=== PATIENT | male | born 1980 | race Asian ===

== ENCOUNTER 2019-02-05 10:29 | Emergency (ER) | payer OTHER ==
[2019-02-05 11:10] LABS: ABS Basophils 0 10^3/ul (0-0.2); ABS Eosinophils 0 10^3/ul (0-0.6); ABS Lymphocytes 1.5 10^3/ul (1.0-4.8); ABS Monocytes 0.2 10^3/ul (0-0.8); ABS Nucleated RBC 0 10^3/ul; Eosinophil % 0.9 %; Hematocrit 43 % (36-46); Hemoglobin 14.7 g/dL (14.0-18.0); Lymphocyte % 25.3 %; Mean Corpuscular HGB Conc 34 g/dL (31-36); Mean Corpuscular Hemoglobin 28 pg (27-31); Mean Corpuscular Volume 82 fL (80-94); Mean Platelet Volume 9.7 fL (7.4-10.4); Nucleated Red Blood Cells % 0.1; Platelet Count 172 10^3/uL (150-450); Red Blood Count 5.23 10^6 /uL (4.18-5.48); Red Cell Distribution Width 14 % (10.5-15); White Blood Count 5.7 10^3/uL (3.5-10.8)
[2019-02-05] MEDS ORDERED: Al Hydrox/Mg Hydrox/Simet LIQ* 30 ML UDC PO ONE (11:14)
[2019-02-05] MEDS ORDERED: Lidocaine 2% VISCOUS* 15 ML UDC PO ONE (11:14)
--- NOTE | 2019-02-05 11:25 | ED ---
GI/ HPI - HPI Summary HPI Summary: 38 year old male presents to the emergency department for evaluation of epigastric pain. Pt states the pain started last night, 2 hours after dinner, and felt like a dull ache that is moderate in severity. Pt also reports associated diaphoresis, nausea, and fatigue during that time. He states that his symptoms resolved after he ate something small and drank water. Pt states he had [place] and was diagnosed with gastritis. He was treated on and off with omperazole and pantoprazole in the past. Pt states this has happened to him in the past during periods of stress and was treated by his doctor back home. He states he just moved to the [place] last month and is under increased stress. He started taking omeprazole twice a day since 01/17/19. Pt smokes 1-2 cigarettes per day. He does not drink alcohol. He states his mother was diagnosed with an abnormal heart rhythm when she was older but it did not kill her. - History of Current Complaint Chief Complaint: EDAbdPain Time Seen by Provider: 02/05/19 10:37 Stated Complaint: ABD PAIN PER PT Hx Obtained From: Patient Pain Intensity: 0 Location of Pain: Epigastric Pain Characteristics: Dull, Aching Associated Signs and Symptoms: Positive: Nausea, Diaphoresis. Negative: Back Pain, Pallor, Dizziness, Syncope, Vomiting, Blood-Streaked Stool, Black Tarry Stool, Bright Red Blood w/Stool, Blood w/Stool, Diarrhea, Fever, Change in Appetite, Cough, Chest Pain, Pale - Risk Factors GI Bleed Risk Factor(s): Negative - Allergy/Home Medications Allergies/Adverse Reactions: Allergies Allergy/AdvReac Type Severity Reaction Status Date / Time No Known Allergies Allergy Verified 02/05/19 10:35 PMH/Surg Hx/FS Hx/Imm Hx Previously Healthy: Yes Infectious Disease History: No Infectious Disease History: Denies: Traveled Outside the [place] in Last 30 Days - Social History Alcohol Use: None Substance Use Type: Reports: None Smoking Status (MU): Light Every Day Tobacco Smoker Review of Systems Constitutional: Negative Positive: Skin Diaphoresis. Negative: Fever, Chills Negative: Photophobia, Blurred Vision, Diplopia Negative: Palpitations, Chest Pain Negative: Shortness Of Breath, Cough Positive: Abdominal Pain - epigastric, Nausea. Negative: Vomiting, Diarrhea Genitourinary: Negative Negative: Arthralgia, Myalgia Negative: Rash Negative: Headache, Weakness, Paresthesia, Numbness, Syncope All Other Systems Reviewed And Are Negative: Yes Physical Exam Triage Information Reviewed: Yes Vital Signs On Initial Exam: Initial Vitals Temp Pulse Resp BP Pulse Ox 98.4 F 85 17 126/102 96 02/05/19 10:29 02/05/19 10:29 02/05/19 10:29 02/05/19 10:29 02/05/19 10:29 Vital Signs Reviewed: Yes Appearance: Positive: Well-Appearing, No Pain Distress, Well-Nourished Skin: Positive: Warm, Skin Color Reflects Adequate Perfusion Head/Face: Positive: Normal Head/Face Inspection Eyes: Positive: Normal, EOMI, Conjunctiva Clear ENT: Positive: Hearing grossly normal, Pharynx normal Neck: Positive: Supple, Nontender Respiratory/Lung Sounds: Positive: Clear to Auscultation, Breath Sounds Present Cardiovascular: Positive: Normal, RRR, Pulses are Symmetrical in both Upper and Lower Extremities Abdomen Description: Positive: Nontender, Soft Bowel Sounds: Positive: Present Musculoskeletal: Positive: Normal, Strength/ROM Intact Neurological: Positive: Normal, Sensory/Motor Intact, Alert, Oriented to Person Place, Time Psychiatric: Positive: Affect/Mood Appropriate Diagnostics - Vital Signs Vital Signs Temp Pulse Resp BP Pulse Ox 02/05/19 10:29 98.4 F 85 17 126/102 96 - Laboratory Lab Results: Lab Results 02/05/19 Range/Units 11:03 WBC 5.7 (3.5-10.8) 10^3/uL RBC 5.23 (4.18-5.48) 10^6 /uL Hgb 14.7 (14.0-18.0) g/dL Hct 43 (36-46) % MCV 82 (80-94) fL MCH 28 (27-31) pg MCHC 34 (31-36) g/dL RDW 14 (10.5-15) % Plt Count 172 (150-450) 10^3/uL MPV 9.7 (7.4-10.4) fL Neut % (Auto) 69.1 % Lymph % (Auto) 25.3 % Union % (Auto) 4.2 % Eos % (Auto) 0.9 % Baso % (Auto) 0.5 % Absolute Neuts (auto) 4.0 (1.5-7.7) 10^3/ul Absolute Lymphs (auto) 1.5 (1.0-4.8) 10^3/ul Absolute Monos (auto) 0.2 (0-0.8) 10^3/ul Absolute Eos (auto) 0 (0-0.6) 10^3/ul Absolute Basos (auto) 0 (0-0.2) 10^3/ul Absolute Nucleated RBC 0 10^3/ul Nucleated RBC % 0.1 Result Diagrams: 02/05/19 11:03 02/05/19 11:03 Lab Statement: Any lab studies that have been ordered have been reviewed, and results considered in the medical decision making process. - Ultrasound No standard instances Ultrasound Interpretation Completed By: Radiologist Summary of Ultrasound Findings: IMPRESSION: SMALL AMOUNT OF SLUDGE WITHIN THE GALLBLADDER, OTHERWISE UNREMARKABLE STUDY. - EKG No standard instances Cardiac Rate: NL EKG Rhythm: Sinus Rhythm Summary of EKG Findings: sinus rhythm Re-Evaluation - Re-Evaluation First Eval Re-Evaluation Time: 12:26 Comment: now states has pain but abd soft nontender, will get u/s GIGU Course/Dx - Course Course Of Treatment: 38 year old male presents with epigastric pain for past couple days. better with food. no blood in stool or dark tarry stool. no fever. admits to nausea and constipation. no chest pain or SOB. on exam nontender abd. wbc normal. ekg sinus rhythm. troponin zero.u/s shows sludge, will treat for potential gastritis with carafate and maalox as need in addition to omprezaole already on. told to follow up with GI. gave miralax for constipaton. patient understand and agrees with plan. - Diagnoses Differential Diagnoses - Male: Gastritis, Gastroenteritis (Viral), Urinary Tract Infection Provider Diagnoses: Epigastric pain Discharge - Sign-Out/Discharge Documenting (check all that apply): Patient Departure Patient Received Moderate/Deep Sedation with Procedure: No - Discharge Plan Condition: Good Disposition: HOME Prescriptions: Al Hydrox/Mg Hydrox/Simet LIQ* [Maalox Plus*] 30 ml PO Q6H PRN #1 bottle PRN Reason: Dyspepsia Omeprazole CAP (NF) [Prilosec CAP* 20 MG] 20 mg PO DAILY #30 cap.dr Polyethylene Glycol 3350* [Miralax*] 17 gm PO DAILY #10 packet Sucralfate TAB* [Carafate*] 1 gm PO QID #120 tab Patient Education Materials: Gastritis (ED) Referrals: [facility] [Outside] Sujatha Uribe MD [Medical Doctor] - Additional Instructions: continue omeprazole daily take carafate four times a day take miralax 1 packet in 8 ounce of liquid as needed for constipation Take Maalox 30ml every 6 hours for epigastric pain as needed Avoid acidic foods Stay upright for at least 30 mins after eating Follow up with GI follow [facility] with [facility] within 2 weeks Return to ED if develop any new or worsening symptoms - Billing Disposition and Condition Condition: GOOD Disposition: Home
[2019-02-05 11:29] LABS: Troponin I 0.01 ng/mL (<0.04)
[2019-02-05 11:45] LABS: ALT 10 U/L (7-52); AST 15 U/L (13-39); Albumin 4.8 g/dL (3.2-5.2); Albumin/Globulin Ratio 1.8 (1-3); Alkaline Phosphatase 81 U/L (34-104); Anion Gap 7 mmol/L (2-11); BUN/Creatinine Ratio 12.7 (8-20); Blood Urea Nitrogen 10 mg/dL (6-24); C Reactive Protein < 1.00 mg/L (<8.01); CO2 Carbon Dioxide 27 mmol/L (22-32); Calcium 9.7 mg/dL (8.6-10.3); Chloride 105 mmol/L (101-111); EGFR African American 131.4 (>60); EGFR Non-African American 108.6 (>60); Globulin 2.6 g/dL (2-4); Glucose 117 mg/dL (70-100); Sodium 139 mmol/L (135-145); Total Protein 7.4 g/dL (6.4-8.9)
[2019-02-05] MEDS ORDERED: Famotidine TAB* 20 MG PO ONE (12:14)
[2019-02-05 13:39] VITALS: BP 128/91
== END 2019-02-05 13:37 | disposition home or self-care (01) ==
LOC: EDBD → ED 10:29
DX: R10.13 Epigastric pain (principal); R11.0 Nausea; R61 Generalized hyperhidrosis
CPT/HCPCS: 36415; 76705; 80053; 83690; 84484; 85025; 86140; 93005; 99283; A9270-GY